=== PATIENT | female | born 1970 | race Caucasian/White ===

== ENCOUNTER 2020-02-21 18:29 | Emergency (ER) | payer BC, OTHER ==
[~2020-02-21] VITALS: Ht 160 cm; Wt 99.8 kg
[2020-02-21 18:34] VITALS: BP 144/100
[2020-02-21] MEDS ORDERED: LIDOCAINE HCL/MPF 1% 30 ML VIAL IJ ONE (18:53)
[2020-02-21] MEDS ORDERED: TDAP [DIPH/PERTUSSIS/TET] 0.5 ML VIAL IM ONE ×2 (19:00→19:01)
[2020-02-21] MEDS ORDERED: LIDOCAINE 2% 20 ML MDV TP ONE (19:00)
[2020-02-21] MEDS ORDERED: HYDROCODONE/APAP 5/325MG TABLET PO ONE (19:00)
[2020-02-21] MEDS ORDERED: HYDROCODONE/APAP 5/325MG TABLET ONE (19:01)
--- NOTE | 2020-02-21 19:32 | NUR ---
LAC CARE WAS PROVIDED BY PA AND WOUND CARE WAS PROVIDED BY EMT. LEFT HAND WAS WRAPPED WITH DRY GAUZE AND ANTIBACTERIAL OINMENT. Patient discharged to home in stable condition. Written and verbal after care instructions given. Patient verbalizes understanding of instructioN. PT ambulatory with a steady gait.
== END 2020-02-21 19:34 | disposition home or self-care (01) ==
LOC: ER 18:32
DX: S61.217A Laceration without foreign body of left little finger without damage to nail, initial encounter (principal); G43.909 Migraine, unspecified, not intractable, without status migrainosus; W18.09XA Striking against other object with subsequent fall, initial encounter; Y93.89 Activity, other specified; Y92.89 Other specified places as the place of occurrence of the external cause; Y99.8 Other external cause status
CPT/HCPCS: 12041; 90471; 90715; 99284; A6403; J3490